=== PATIENT | female | born 1990 ===

== ENCOUNTER 2021-05-26 19:41 | Inpatient (IN) | payer BC, OTHER ==
[2021-05-26 20:21] VITALS: BMI 35.7
[2021-05-26 20:36] LABS: Bilirubin Neg (Negative); Blood, Urine 10 (Negative); Clarity Slightly Cloudy (Clear); Glucose, Urine (Dipstick) Normal (Negative); Ketone, Urine 5 mg/dL (Negative); Leukocyte 25 (Negative); Nitrite Negative (Negative); Protein, Urine (Dipstick) 500 mg/dl (Neg-Trace); Specific Gravity, Urine 1.025 (1.002-1.036)
[2021-05-26 20:44] LABS: Bacteria/HPF 4+ HPF (None Seen)
[2021-05-26 20:45] LABS: RBC/HPF 0-3 HPF (0-3); WBC/HPF 21-50 HPF (0-3)
[2021-05-26 20:49] LABS: Creatinine, Urine 175.34 mg/dL (47-110)
[2021-05-26 21:00] LABS: #Neutrophils 16.3 10x3/uL (1.5-8.4); %Basophils 0.2 % (0.0-2.0); %Eosinophils 0.1 % (0.0-6.0); %Monocytes 5.2 % (0.0-10.0); %Neutrophils 83.7 % (40.0-75.0); Hemoglobin 13.2 g/dL (12.0-15.5); Mean Corpuscular HGB CONC 32.5 g/dL (32.0-36.0); Mean Corpuscular Hemoglobin 28.4 pg (27.0-33.0); Mean Corpuscular Volume 87.3 fl (81.6-98.3); Mean Platelet Volume 13.1 fl (7.4-10.4); Platelet Count 149 10x3/uL (150-450); RBC Distribution Width 17.2 % (11.5-14.5); Red Blood Cell (RBC) Count 4.65 10x6/uL (3.90-5.03); White Blood Cell (WBC) Count 19.5 10x3/uL (3.5-10.5)
[2021-05-26 21:18] LABS: ALT (SGPT) 15 U/L (8-55); AST (SGOT) 23 U/L (5-34); Alkaline Phosphatase 179 U/L (40-110); Anion Gap 15 mmol/L (10-20); BUN (Urea Nitrogen) 11 mg/dL (7.0-18.7); Bilirubin, Total 0.4 mg/dL (0.2-1.2); Calc. Creatinine Clearance 208 mL/min (70-130); Calcium 8.4 mg/dL (7.8-10.44); Carbon Dioxide 19 mmol/L (22-29); Chloride 107 mmol/L (98-107); Globulin 2.6 g/dL (2.4-3.5); Glucose 79 mg/dL (70-105); Protein, Total 5.6 g/dL (6.0-8.3); Sodium 137 mmol/L (136-145)
[2021-05-26] MEDS ORDERED: hydrALAZINE 20 MG/ML VIAL SLOW IVP PRN ×2 (21:50→22:54)
[2021-05-26] MEDS ORDERED: Promethazine HCl 25 MG/ML VIAL IM PRN (22:54)
[2021-05-26] MEDS ORDERED: Butorphanol Tartrate 1 MG/ML VIAL SLOW IVP PRN (22:54)
[2021-05-26] MEDS ORDERED: Zolpidem Tartrate 5 MG TAB PO PRN (22:54)
[2021-05-26] MEDS ORDERED: Ondansetron PF 4 MG/2 ML Vial IVP PRN (22:54)
[2021-05-26 23:00] LABS: Bilirubin Neg (Negative); Blood, Urine 10 (Negative); Glucose, Urine (Dipstick) Normal (Negative); Ketone, Urine 50 mg/dL (Negative); Leukocyte 25 (Negative); Nitrite Negative (Negative); Protein, Urine (Dipstick) 500 mg/dl (Neg-Trace); Specific Gravity, Urine 1.025 (1.002-1.036)
[2021-05-26 23:04] LABS: Clarity Hazy (Clear)
[2021-05-26 23:33] LABS: Bacteria/HPF 1+ HPF (None Seen)
[2021-05-27 01:29] LABS: Hep B Surf Ag Non-Reactive S/CO (NonReactive); Syphilis Antibody Nonreactive (Nonreactive); Syphilis Antibody Index 0.03 S/CO (<1.00 Non-Reactive)
[2021-05-27] MEDS ORDERED: CEFAZOLIN 1 GM in Sodium Chloride 0.9% 100 ML IVPB SCH (08:00)
[2021-05-27 08:15] LABS: Hemoglobin 12.7 g/dL (12.0-15.5); Mean Corpuscular HGB CONC 32.3 g/dL (32.0-36.0); Mean Corpuscular Volume 86.6 fl (81.6-98.3); Mean Platelet Volume 13.8 fl (7.4-10.4); Platelet Count 151 10x3/uL (150-450); RBC Distribution Width 17.9 % (11.5-14.5); Red Blood Cell (RBC) Count 4.54 10x6/uL (3.90-5.03); White Blood Cell (WBC) Count 14.4 10x3/uL (3.5-10.5)
[2021-05-27 08:25] LABS: ALT (SGPT) 14 U/L (8-55); AST (SGOT) 22 U/L (5-34); Albumin 2.9 g/dL (3.5-5.0); Alkaline Phosphatase 173 U/L (40-110); Anion Gap 14 mmol/L (10-20); BUN (Urea Nitrogen) 12 mg/dL (7.0-18.7); Bilirubin, Total 0.6 mg/dL (0.2-1.2); Calc. Creatinine Clearance 192 mL/min (70-130); Calcium 8.5 mg/dL (7.8-10.44); Carbon Dioxide 20 mmol/L (22-29); Chloride 106 mmol/L (98-107); Globulin 2.6 g/dL (2.4-3.5); Glucose 70 mg/dL (70-105); Protein, Total 5.5 g/dL (6.0-8.3); Sodium 136 mmol/L (136-145)
[2021-05-27] MEDS ORDERED: NS w/ Oxytocin 30 units 500 ML IV SCH (09:28)
[2021-05-27] MEDS ORDERED: Fentanyl 2 mcg/Bup 0.1% Cadd 100 ML ONE (23:51)
[2021-05-28] MEDS ORDERED: Ondansetron PF 4 MG/2 ML Vial IVP PRN (00:43)
[2021-05-28] MEDS ORDERED: Acetaminophen 325 MG TAB PO PRN (00:43)
[2021-05-28] MEDS ORDERED: Naloxone HCl 0.4 mg/ml Vial IVP PRN ×2 (00:43)
[2021-05-28] MEDS ORDERED: Lactated Ringer's 500 ML IV PRN (00:43)
[2021-05-28] MEDS ORDERED: diphenhydrAMINE 50 MG/ML VIAL IVP PRN (00:43)
[2021-05-28] MEDS ORDERED: Hydrocerin (Eucerin) Cream 120 gm Jar TOP PRN (00:43)
[2021-05-28] MEDS ORDERED: Promethazine HCl 25 MG/ML VIAL IM PRN (00:43)
[2021-05-28] MEDS ORDERED: Communication Order-Pharmacy FS SCH (00:45)
[2021-05-28] MEDS ORDERED: Fentanyl 2 mcg/Bupivacaine 0.1% Cassette 100 ML EPIDURAL SCH (00:45)
[2021-05-28] MEDS: ePHEDrine Sulfate 50 MG/10 ML VIAL SLOW IVP PRN ×2 (01:08→01:44)
[2021-05-28] MEDS: CEFAZOLIN 1 GM in Sodium Chloride 0.9% 100 ML IVPB SCH ×3 (02:27→13:18)
[2021-05-28] MEDS ORDERED: Lidocaine 1% (PF) 30 ML VIAL ONE (04:15)
[2021-05-28] MEDS ORDERED: Milk Of Magnesia 30 ML UDCUP PO PRN (08:06)
[2021-05-28] MEDS ORDERED: Bisacodyl 10 MG SUPP PR PRN (08:06)
[2021-05-28] MEDS ORDERED: hydrALAZINE 20 MG/ML VIAL SLOW IVP PRN (08:06)
[2021-05-28] MEDS ORDERED: HYDROcodone/Acetaminophen 5/325 mg Tablet PO PRN (08:06)
[2021-05-28] MEDS ORDERED: Benzocaine-Menthol 82.5 ML CAN TOP PRN (08:06)
[2021-05-28] MEDS ORDERED: Lanolin Ointment 7 GM TUBE TOP PRN (08:06)
[2021-05-28] MEDS: Prenatal Vitamin 1 TAB PO SCH (08:47)
[2021-05-28] MEDS: Docusate Calcium (SURFAK) 240 MG CAP PO SCH ×2 (08:47→21:00)
[2021-05-28] MEDS ORDERED: Ibuprofen 800 MG TAB PO SCH (09:00)
[2021-05-28] MEDS ORDERED: Ferrous Sulfate 325 MG TAB PO SCH (09:00)
[2021-05-28 10:34] LABS: SARS-CoV-2 NAA Rapid Test Not Detected (NotDetected)
[2021-05-28] MEDS: Ibuprofen 800 MG TAB PO SCH (16:36)
[2021-05-28] MEDS: Ferrous Sulfate 325 MG TAB PO SCH (16:41)
[2021-05-29] MEDS: Ibuprofen 800 MG TAB PO SCH ×4 (00:29→22:34)
[2021-05-29 06:04] LABS: #Basophils 0.1 10x3/uL (0.0-0.2); #Eosinphils 0.2 10x3/uL (0.0-0.5); #Monocytes 0.7 10x3/uL (0.0-1.1); %Basophils 0.4 % (0.0-2.0); %Eosinophils 1.4 % (0.0-6.0); %Lymphocytes 28.8 % (18.0-47.0); %Monocytes 5.9 % (0.0-10.0); %Neutrophils 62.6 % (40.0-75.0); Hemoglobin 10.5 g/dL (12.0-15.5); Mean Corpuscular HGB CONC 31.3 g/dL (32.0-36.0); Mean Corpuscular Hemoglobin 28.2 pg (27.0-33.0); Mean Corpuscular Volume 90.3 fl (81.6-98.3); Mean Platelet Volume 12.8 fl (7.4-10.4); Platelet Count 112 10x3/uL (150-450); RBC Distribution Width 17.7 % (11.5-14.5); Red Blood Cell (RBC) Count 3.72 10x6/uL (3.90-5.03); White Blood Cell (WBC) Count 11.3 10x3/uL (3.5-10.5)
[2021-05-29] MEDS ORDERED: Boostrix 0.5 ML (Tdap) VIAL IM ONE (08:06)
[2021-05-29] MEDS: Docusate Calcium (SURFAK) 240 MG CAP PO SCH ×2 (08:43→22:34)
[2021-05-29] MEDS: Prenatal Vitamin 1 TAB PO SCH (08:43)
[2021-05-29] MEDS: Ferrous Sulfate 325 MG TAB PO SCH ×2 (08:44→16:24)
[2021-05-30] MEDS: Ibuprofen 800 MG TAB PO SCH (06:13)
[2021-05-30 08:02] VITALS: BP 139/85; TEMP 97.9
[2021-05-30] MEDS: Prenatal Vitamin 1 TAB PO SCH (08:28)
[2021-05-30] MEDS: Docusate Calcium (SURFAK) 240 MG CAP PO SCH (08:28)
[2021-05-30] MEDS: Ferrous Sulfate 325 MG TAB PO SCH (08:29)
== END 2021-05-30 11:00 | disposition home or self-care (01) | DRG 806 ==
LOC: CSHLD/OP 19:41 → UNDOADMOB 23:20 → CSHLD 23:20 → OBSVTOIN 05-27 09:27 → CSHLD 05-27 10:05 → CSHPP 05-28 07:58
PROVIDERS: ADMIT Obstetrics & Gynecology; ATTEND Obstetrics & Gynecology
PROC: 10E0XZZ Delivery of Products of Conception, External Approach (ICD-10-PCS; principal; 2021-05-28)
PROC: 0HQ9XZZ Repair Perineum Skin, External Approach (ICD-10-PCS; 2021-05-28)
DX: O13.4 Gestational [pregnancy-induced] hypertension without significant proteinuria, complicating childbirth (principal); N39.0 Urinary tract infection, site not specified; Z37.0 Single live birth; Z20.822 Contact with and (suspected) exposure to COVID-19; O75.3 Other infection during labor; O14.04 Mild to moderate pre-eclampsia, complicating childbirth; O70.0 First degree perineal laceration during delivery; O99.02 Anemia complicating childbirth; D64.9 Anemia, unspecified; Z3A.39 39 weeks gestation of pregnancy
CPT/HCPCS: 36415; 51701; 51702; 76815; 80053; 81001; 81015; 82570; 84156; 85025; 85027; 86780; 86850; 86900; 86901; 87081; 87086; 87340; 99285; G0378; J0690; J2590; J3490; U0002